=== PATIENT | male | born 1945 | race African-American/Black ===

== ENCOUNTER → 2024-02-21 08:47 | Outpatient (REF) | payer MEDICARE, OTHER, SELFPAY ==
[2024-02-21 09:55] LABS: Hematocrit 43.2 % (39.0-52.0); Hemoglobin 14.3 g/dL (13.0-18.0); Mean Corp Hgb Conc. 33.1 g/dL (33.0-37.0); Mean Corpuscular Hgb 29.9 pg (27.0-31.0); Mean Corpuscular Volume 90.4 fL (80.0-94.0); Mean Platelet Volume 10.3 fL (7.4-10.4); Platelet Count 156 10^3/uL (130-400); Red Blood Cell Count 4.78 10^6/uL (4.70-6.10); Red Cell Dist. Width 12.6 % (11.5-14.5); White Blood Cell Count 5.6 10^3/uL (4.8-10.8)
[2024-02-21 10:16] LABS: Blood Urea Nitrogen 19 mg/dl (9-20); Calcium 9.8 mg/dl (8.4-10.2); Carbon Dioxide 27 mmol/L (22-30); Chloride 106 mmol/L (98-107); Glucose 109 mg/dl (70-99); Potassium 4.6 mmol/L (3.5-5.1); Sodium 140 mmol/L (135-145); eGFR > 60.00
== END ==
LOC: SDSPAT 08:47
PROVIDERS: ATTENDING PHYSICIAN Surgery; FAMILY PHYSICIAN Family Medicine
DX: Z01.818 Encounter for other preprocedural examination (principal)
CPT/HCPCS: 36415; 80048; 85027; 93005

== ENCOUNTER 2024-03-10 06:09 | Day surgery (SDC) | payer MEDICARE, OTHER, SELFPAY ==
[2024-02-21 09:07] VITALS: BMI 24.6
[2024-03-10] VITALS (9 sets, daily range): BP systolic 138–164; BP diastolic 83–88; BMI 24.6
--- NOTE | 2024-03-10 06:47 | HP.FOC2 ---
Focused History & Physical
Chief Complaint
HPI:
Chief Complaint: Right inguinal hernia
HPI / Indication for Planned Procedure: Patient is an 78-year-old male recently seen in outpatient surgical evaluation secondary to a few month history of discomfort and a visible swelling in the right inguinal region. He has an awareness of the
hernia being present daily but no significant pain or discomfort. Past medical history notable for BPH status post TURP. Previous CT imaging identifying a right indirect inguinal hernia, fat-containing in 2021.
Relevant Past Medical History: Other (BPH)
Relevant Social History: Negative
Relevant Family History: Negative
Relevant Past Surgical History: Positive for (TURP, nasal fracture repair)
Review of Systems
Review of Pertinent Systems: All Systems Negative
Medication
See Medication form for detailed medications: Yes
Medication List (including Herbals & OTC):
Natural Juice 1 cap PO DAILY 03/06/24
Natural Vegetables 1 cap PO DAILY 03/06/24
dutasteride 0.5 mg capsule 0.5 mg PO DAILY 03/06/24
red yeast rice 600 mg tablet 600 mg PO DAILY 03/06/24
Medications Reviewed: Yes
Allergies and Reactions
Patient has Allergies: Yes
Noted Allergies and Reactions:
Allergy/AdvReac Type Severity Reaction Status Date / Time
Penicillins Allergy Rash Verified 03/06/24 11:56
Pertinent Physical Exam
All Other Systems: Negative
Head/Neck: Normal
Lungs: Normal
Heart: Normal
Abdomen: Other (Reducible right inguinal hernia)
Extremities: Normal
Neurological: Normal
Diagnosis / Assessment
78-year-old male presenting for scheduled operative correction symptomatic right inguinal hernia
Plan / Procedure
Robotic assisted laparoscopic repair right inguinal hernia with mesh
Anesthesia/Sedation to be done by Anesthesia Provider: Yes
--- NOTE | 2024-03-10 06:49 | W.SUR.PREOP ---
Pre-Operative Surgical Note
-
I have examined this patient prior to the performance of the scheduled procedure.
The patient's condition is unchanged from the time of the current History and
Physical and the patient is able to undergo the scheduled procedure.
[2024-03-10] MEDS: NORMOSOL-R/PLASMALYTE-A 1000 IV (07:07)
[2024-03-10] MEDS: TYLENOL 1000 MG PO (07:08)
--- NOTE | 2024-03-10 09:09 | W.IMMPOSTOP ---
Addendum entered and electronically signed by Alan Jones MD 03/10/24 09:30:
#[id number]
Original Note:
Surgical Immed Post Op Note
-
Primary Surgeon: Karen
Assisting Surgeon: Lorraine LARSON
Pre-op Diagnosis: RIH
Post-op Diagnosis: RIH
Procedure Performed: RAL JONY RIH repair with mesh; 3D max large mid
Anesthesia Type: GETA + 0.25% Marcaine
Specimen / Cultures: none
Estimated Blood Loss: 6mL
Complications: none immediate
Operative Findings: right indirect inguinal hernia; left side normal. no lipoma. 3d max large mid wt mesh repair.
== END 2024-03-10 10:54 | disposition home or self-care (01) ==
LOC: SDS 06:09
PROVIDERS: ATTENDING PHYSICIAN Surgery; FAMILY PHYSICIAN Family Medicine
DX: K40.90 Unilateral inguinal hernia, without obstruction or gangrene, not specified as recurrent (principal)
CPT/HCPCS: 49650; C1781